=== PATIENT | female | born 2000 | race Caucasian/White ===

== ENCOUNTER 2022-04-04 10:15 | Outpatient (RCR) | payer OTHER, SELFPAY ==
[2022-03-17 11:16] VITALS: BP 90/58; PULSE 84; TEMP 36.9
[2022-03-17 11:22] VITALS: BMI 17.0
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
[2022-03-20 11:22] LABS: Amphetamine Screen Urine Not Detected (Not Detect); Barbiturates, Urine Not Detected (Not Detect); Benzodiazepines Screen Urine Not Detected (Not Detect); Cannabinoid Screen Urine POSITIVE (Not Detect); Cocaine Screen Urine Not Detected (Not Detect); Fentanyl, urine Not Detected (Not Detect); Opiate Screen Urine Not Detected (Not Detect); Phencyclidine Screen Urine Not Detected (Not Detect)
--- NOTE | 2022-03-22 09:54 | HO.PHPPROGNO ---
Subjective Subjective Date of Service: 03/22/22 Reason For Visit: MDD Medical Problems Affecting Mental Status: No Interim History: Reports increased depressive symptoms. Intrusive thoughts of self-harm yesterday states not today. Passive SI, no intent or plan currently. Reports Symptoms of PTSD including nightmares, intrusive memories, exaggerated startle response, symptoms of hyperarousal and hypervigilance. Continues with anxiety. Requesting increase of Lexapro. Medication Compliance: Yes Side effects from medications: No Attending Groups: Yes Review of Systems Acute medical concerns: No Medical Review of Systems: unchanged Review of Systems Review of Systems Yes all other systems are reviewed and are negative Constitutional: Reports no additional constitutional complaints Mental Status Exam Mental Status Exam Narrative: NAD. Passive SI. No abnormal movements, ambulation normal. Patient Appearance: Appropriate Patient Orientation: Person, Place, Time and Situation Level of Consciousness: Appropriate Patient Behavior: Appropriate and Good Eye Contact Behavior Comments: Withdrawn Mood Description: Depressed and Anxious Affect Description: Depressed and Anxious Patient Cognition Impaired: No Ability to Follow Directions: Good Speech Pattern: Coherent and Soft-Spoken Memory Description: Intact Hallucinations: None Delusions: Not Present Thought Process: Intact Thought Content: positive for Obsessional Thoughts (intrusive thoughts of self harm. ) and positive for Suicidal Ideation (Passive, no intent/plan) Depressive Symptoms: Increased Anxiety, Difficulty Sleeping (nightmares), Changes in Appetite (decreased), Loss of Int. in Activity, Hopelessness, Isolating-Friends/Family, Increased Fatigue, Thoughts of /Suicide (describes intrusive thoughts, no intent/plan) and Difficulty Concentrating Judgement: Fair Diagnostics Vital Signs (24Hr): BMI result Body Mass Index 17.0 Labs Labs: Laboratory Results - last 48 hr 03/20/22 08:50 Urine Opiates Screen Not Detected Urine Fentanyl Screen Not Detected Ur Barbiturates Screen Not Detected Ur Phencyclidine Scrn Not Detected Ur Amphetamines Screen Not Detected U Benzodiazepines Scrn Not Detected Urine Cocaine Screen Not Detected U Marijuana (THC) Screen POSITIVE H Assessment & Plan Assessment & Plan (1) Major depressive disorder, recurrent severe without psychotic features: Status: Acute Code(s): F33.2 - Major depressive disorder, recurrent severe without psychotic features Assessment and Plan: Reports increased depressive symptoms. Intrusive thoughts of self-harm yesterday states not today. Reports that another patient had been using scissors to cut the fringe off of their pants yesterday and that she found this triggering regarding thoughts of self-harm. Passive SI, no intent or plan currently. Requesting increase of Lexapro, as she has been taking it for over 3 weeks and does not have any effect yet. Discussed increasing dose to 20 mg. Also discussed expected onset of affect as usually between 3-4 weeks, sometimes longer when taking an SSRI. Patient was encouraged to notify staff immediately if she feels she is unsafe in any way. She was agreeable to this.. (2) Generalized anxiety disorder: Status: Acute Code(s): F41.1 - Generalized anxiety disorder Assessment and Plan: Believes her anxiety may actually be posttraumatic stress disorder. Endorses PTSD symptoms including nightmares, flashbacks/intrusive memories, irritability, exaggerated startle response, symptoms of hyperarousal and hypervigilance. Discussed adding risperidone, discussed medication in detail including risks and benefits, alternatives of treatment recommendations. Willing to trial low-dose risperidone at bedtime. Patient is also taken hydroxyzine in the past, willing to trial low-dose p.r.n. to help with anxiety symptoms. (3) Cannabis dependence, uncomplicated: Status: Acute Code(s): F12.20 - Cannabis dependence, uncomplicated Plan 1. Continue with current [facility] plan of care. 2. Increase Lexapro to 20 mg daily, 30 day script sent to pharmacy. 3. Start Risperdal 0.5 at bedtime, 7 day supply sent to pharmacy. 4. Start hydroxyzine 10 mg t.i.d. p.r.n. for anxiety, 21 tab supply sent to pharmacy. 5. Follow-up as per protocol. Patient educated on: diagnosis, medication risk/benefits and therapeutic strategies Informed Consent: understands Reason for contiued partial hosp. stay Substantial Risk for: harm to self, inability to function, rapid decompensation and med/psych decompensation Certification I certify that partial hospital treatment is medically necessary due to the symptoms and problems resulting from the patient's mental illness and the failure to treat the patient at the partial hospital level of care would likely result in the patient requiring inpatient psychiatric care which could not be prevented at a less intensive level of care. I spent minutes with the patient and/or on the patient floor today, greater than?50% of which was spent counseling/coordinating care. Discharge Plan Discharge Attending provider: Anastacio Castañeda Medications: New prazosin 1 mg capsule 3 mg PO BEDTIME 30 Days Qty: 90 0RF escitalopram oxalate 20 mg tablet 20 mg PO DAILY Qty: 30 0RF risperidone 0.5 mg tablet 0.5 mg PO BEDTIME Qty: 7 0RF hydroxyzine HCl 10 mg tablet 10 mg PO TID PRN (Reason: anxiety) Qty: 21 0RF Discontinued prazosin 1 mg Capsule 3 mg PO BEDTIME escitalopram oxalate 10 mg Tablet 10 mg PO DAILY escitalopram oxalate 5 mg Tablet 5 mg PO DAILY No Action ramelteon [Rozerem] 8 mg Tablet 8 mg PO BEDTIME
--- NOTE | 2022-03-23 14:14 | PC.NURSE ---
case opened in tx team
--- NOTE | 2022-03-24 12:28 | PC.NURSE ---
Met with patient this morning regarding increased anxiety. Patient states she is afraid of having a panic attack because of intense anxiety. Validation and emotional support given. Assisted patient with weekend plan to be away from her roommate who is the cause of her anxiety. Patient reports she is a constant trigger. Patient has plan of staying with her sister this evening and when with a friend starting tomorrow to limit time with roomate. Patient has spoken with roommate about leaving with the plan being that roommate will leave carlo. Patient denies SI and HI. Patient states that if she cannot manage stress or has SI with plan or intent she will call Crisis. Teaching done re: medication for anxiety with good understanding. Teaching done re: distraction and non-pharmaceutical interventions with good understanding.
--- NOTE | 2022-03-27 09:26 | PC.NURSE ---
I called client . She states that she was up late and overslept. She will be in tomorrow
--- NOTE | 2022-03-28 11:28 | P.PNPSP_ITS ---
Subjective Subjective Date of Service: 03/28/22 Reason For Visit: MDD Medical Problems Affecting Mental Status: No Interim History: Continues with dysphoric mood. Less intrusive thoughts. Finding risperidone helpful. Utilizing p.r.n. hydroxyzine with positive affect for anxiety. No SI/HI, no safety concerns. Medication Compliance: Yes Side effects from medications: No Attending Groups: Yes Review of Systems Acute medical concerns: No Medical Review of Systems: unchanged Review of Systems Review of Systems Yes all other systems are reviewed and are negative Comments: Has noted increase in acid reflux, will start utilizing [id number] Tums. Mental Status Exam Mental Status Exam Narrative: NAD. No SI, no safety concerns. No abnormal movements, ambulation normal. Patient Appearance: Appropriate Patient Orientation: Person, Place, Time and Situation Level of Consciousness: Appropriate Patient Behavior: Appropriate and Good Eye Contact Behavior Comments: Withdrawn Mood Description: Depressed and Anxious (Improved) Affect Description: Depressed and Anxious (Less) Patient Cognition Impaired: No Ability to Follow Directions: Excellent Speech Pattern: Appropriate, Coherent and Soft-Spoken Memory Description: Intact Hallucinations: None Delusions: Not Present Thought Process: Intact Thought Content: positive for Intact Depressive Symptoms: Increased Anxiety, Loss of Int. in Activity, Isolating- Friends/Family and Difficulty Concentrating Judgement: Fair Diagnostics Vital Signs (24Hr): BMI result Body Mass Index 17.0 Assessment & Plan Assessment & Plan (1) Major depressive disorder, recurrent severe without psychotic features: Status: Acute Code(s): F33.2 - Major depressive disorder, recurrent severe without psychotic features Assessment and Plan: Continues with dysphoric mood. Has not yet noticed improvement with increased dose of escitalopram. Less intrusive thoughts. Finding risperidone helpful. Sleeping better. Utilizing p.r.n. hydroxyzine with positive affect for anxiety. Going back to work soon, discussed ongoing anxiety as it is improved but still present. Discussed increasing dose, patient was agreeable. No SI/HI, no safety concerns. (2) Generalized anxiety disorder: Status: Acute Code(s): F41.1 - Generalized anxiety disorder Plan 1. Increase hydroxyzine to 25 mg t.i.d. p.r.n. for anxiety. Thirty day supply script sent to pharmacy. 2. Continue with all other medications as currently prescribed. 3. Follow-up as per protocol. Patient educated on: diagnosis, medication risk/benefits and therapeutic strategies Informed Consent: understands Reason for contiued partial hosp. stay Substantial Risk for: harm to self, inability to function and med/psych decompensation Certification I certify that partial hospital treatment is medically necessary due to the symptoms and problems resulting from the patient's mental illness and the failure to treat the patient at the partial hospital level of care would likely result in the patient requiring inpatient psychiatric care which could not be prevented at a less intensive level of care. I spent minutes with the patient and/or on the patient floor today, greater than?50% of which was spent counseling/coordinating care. Discharge Plan Discharge Attending provider: Anastacio Castañeda Medications: New prazosin 1 mg capsule 3 mg PO BEDTIME 30 Days Qty: 90 0RF escitalopram oxalate 20 mg tablet 20 mg PO DAILY Qty: 30 0RF hydroxyzine HCl 25 mg tablet 25 mg PO TID PRN (Reason: anxiety) Qty: 90 0RF risperidone 0.5 mg tablet 0.5 mg PO BEDTIME Qty: 30 0RF Discontinued prazosin 1 mg Capsule 3 mg PO BEDTIME escitalopram oxalate 10 mg Tablet 10 mg PO DAILY escitalopram oxalate 5 mg Tablet 5 mg PO DAILY No Action ramelteon [Rozerem] 8 mg Tablet 8 mg PO BEDTIME Stand Alone Forms: Patient Portal Discharge page
--- NOTE | 2022-03-31 11:45 | PC.NURSE ---
I spoke with the client 's brother Aleksandra is leaving earlier for her trip to the beach than she thought and will be back Sunday.
--- NOTE | 2022-04-04 12:17 | HO.PHPPROGNO ---
Subjective Subjective Date of Service: 04/04/22 Reason For Visit: MDD Medical Problems Affecting Mental Status: No Interim History: Describes mood as ?good? today. Less depressed, less anxious. Denies SI/HI, no safety concerns. Feels prazosin is not helping, wants to stop it. No change in dreams, and says it is too sedating. Wants to continue risperidone at bedtime. Medication Compliance: Yes Side effects from medications: Yes (Sedation from prazosin.) Attending Groups: Yes Review of Systems Acute medical concerns: No Medical Review of Systems: unchanged Review of Systems Review of Systems Yes all other systems are reviewed and are negative Constitutional: Reports no additional constitutional complaints Mental Status Exam Mental Status Exam Narrative: NAD. No SI, no safety concerns. No abnormal movements, ambulation/gait/posture normal. Patient Appearance: Appropriate Patient Orientation: Person, Place, Time and Situation Level of Consciousness: Appropriate Patient Behavior: Appropriate, Cooperative and Good Eye Contact Behavior Comments: Withdrawn Mood Description: Depressed (lessened) and Anxious (lessened) Affect Description: Appropriate Patient Cognition Impaired: No Ability to Follow Directions: Excellent Speech Pattern: Clear, Appropriate, Coherent and Soft-Spoken Memory Description: Intact Hallucinations: None Delusions: Not Present Thought Process: Intact Thought Content: positive for Intact Depressive Symptoms: Increased Anxiety Judgement: Good Diagnostics Vital Signs (24Hr): BMI result Body Mass Index 17.0 Assessment & Plan Assessment & Plan (1) Major depressive disorder, recurrent severe without psychotic features: Status: Acute Code(s): F33.2 - Major depressive disorder, recurrent severe without psychotic features Assessment and Plan: Describes mood as ?good? today. Less depressed, less anxious. Denies SI/HI, no safety concerns. States she feels [facility] has been helpful in learning / practicing coping skills. Feels ready for discharge from [facility] today. Feels prazosin is not helping, wants to stop it. No change in dreams, and says it is too sedating. We discussed stopping it at this time, with plan to discuss with new outpatient provider that she is meeting soon. Wants to continue risperidone at bedtime, as it helping to lessen intrusive thoughts. (2) Generalized anxiety disorder: Status: Acute Code(s): F41.1 - Generalized anxiety disorder (3) Cannabis dependence, uncomplicated: Status: Acute Code(s): F12.20 - Cannabis dependence, uncomplicated Assessment and Plan: No new concerns regarding cannabis use. Plan 1. D/C prazosin. 2. Continue other medications as currently prescribed. 3. Patient appears stable for discharge from [facility] at this time. 4. Patient to follow up with outpatient providers going forward. Patient educated on: diagnosis, medication risk/benefits and therapeutic strategies Reason for contiued partial hosp. stay Substantial Risk for: stable for discharge Certification I certify that partial hospital treatment is medically necessary due to the symptoms and problems resulting from the patient's mental illness and the failure to treat the patient at the partial hospital level of care would likely result in the patient requiring inpatient psychiatric care which could not be prevented at a less intensive level of care. I spent minutes with the patient and/or on the patient floor today, greater than?50% of which was spent counseling/coordinating care. Discharge Plan Discharge Attending provider: Anastacio Castañeda Additional Instructions: [facility] Katherine Alvarado 04/24/22 @ 11:00, Amina Luther MD 05/08/22 10:00, 06/06/22 11:00 Medications: New escitalopram oxalate 20 mg tablet 20 mg PO DAILY Qty: 30 0RF hydroxyzine HCl 25 mg tablet 25 mg PO TID PRN (Reason: anxiety) Qty: 90 0RF risperidone 0.5 mg tablet 0.5 mg PO BEDTIME Qty: 30 0RF Discontinued prazosin 1 mg Capsule 3 mg PO BEDTIME escitalopram oxalate 10 mg Tablet 10 mg PO DAILY escitalopram oxalate 5 mg Tablet 5 mg PO DAILY No Action ramelteon [Rozerem] 8 mg Tablet 8 mg PO BEDTIME Stand Alone Forms: Patient Portal Discharge page Patient Education: Depression (DC), Cannabis Abuse (DC)
== END 2022-04-04 23:59 | disposition home or self-care (01) ==
LOC: HO.PHPA 10:15
PROVIDERS: Nurse Practitioner Psychiatric/Mental Health; Visit Provider Psychiatry & Neurology Psychiatry
DX: F33.2 Major depressive disorder, recurrent severe without psychotic features (principal); F41.1 Generalized anxiety disorder; F12.20 Cannabis dependence, uncomplicated; Z79.899 Other long term (current) drug therapy
CPT/HCPCS: 80307; 90791; 90853

== ENCOUNTER 2022-06-01 10:30 | Outpatient (RCR) | payer OTHER, SELFPAY ==
[2022-05-31 12:58] VITALS: BP 94/60; PULSE 80; TEMP 36.8
[2022-05-31 13:02] VITALS: BMI 17.4
[2022-05-31 14:41] LABS: Amphetamine Screen Urine Not Detected (Not Detect); Barbiturates, Urine Not Detected (Not Detect); Benzodiazepines Screen Urine Not Detected (Not Detect); Cannabinoid Screen Urine POSITIVE (Not Detect); Cocaine Screen Urine Not Detected (Not Detect); Fentanyl, urine Not Detected (Not Detect); Opiate Screen Urine Not Detected (Not Detect); Phencyclidine Screen Urine Not Detected (Not Detect)
--- NOTE | 2022-05-31 15:05 | PC.ADMIT ---
Patient is a 22 year old female who self presented to [facility] as she has been struggling with depression with passive SI, denied plan or intent to kill herself, and increased anxiety. Patient attended [facility] in March however did not fall through with provider appointments as she stated, I dropped the ball with doctors, I stopped caring . Patient reports she feels like a failure. Much self loathing and is very hard on herself. Patient taking a [employer]OMER from work to work on her mental health. Patient is alert and oriented x4. Calm and cooperative. Presents with depressed mood and anxious affect. Reports passive SI, a little bit stated, I'm pathetic what would my sister think of me denied plan or intent. Patient given a copy of her safety plan if needed. Patient is help seeking and wants to learn healthy coping skills to take care of herself in a healthy way. Patient called [facility] with me to confirm her new patient appointment in 2022.
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
--- NOTE | 2022-06-01 15:38 | PHP/IOPCOSI ---
Case opened in treatment team
--- NOTE | 2022-06-02 08:37 | HO.PHPIOP ---
The client called out sick. She states that she is safe and will be here Sunday.
--- NOTE | 2022-06-06 07:39 | HO.PHPIOP ---
Pt was scheduled to be present for PHP today 06/05/2022 but she did not come in for PHP. This journalists and other writers attempted to contact her at the phone # that was listed however,the number was not working. This journalists and other writers contacted the Patient's brother who is her emergency contact,he reported that Pt is having difficulty with transportation and that he is in the process of trying to repair her car,he also stated that he would contact the Pt to check in with her. This journalists and other writers informed PHP staff.
--- NOTE | 2022-06-06 09:29 | PC.NURSE ---
Patient called out today. Stated she did not sleep last night as she c/o backache and nausea. Gave patient information on Covid testing at the hospital. Patient plans on getting tested today. Tonia Delgado to call patient to talk about discharge planning. Patient denied SI or any safety issues.
--- NOTE | 2022-06-07 09:47 | HO.PHPIOP ---
Nadeen called out this morning. She has been sick and tested positive for COVID. She states that she will stay out the remainder of this week and retest again on Sunday. She will call me when she is ready to return.
== END 2022-06-01 23:59 | disposition home or self-care (01) ==
LOC: HO.PHPA 10:30
PROVIDERS: Visit Provider Psychiatry & Neurology Psychiatry
DX: F33.2 Major depressive disorder, recurrent severe without psychotic features (principal); F41.1 Generalized anxiety disorder; F12.20 Cannabis dependence, uncomplicated
CPT/HCPCS: 80307; 90792; 90853

== ENCOUNTER 2022-06-06 12:39 | Outpatient (REF) | payer OTHER, SELFPAY ==
[2022-06-06 13:14] LABS: COVID-19 Test Positive (Negative); IDNOW Serial# 16C4AD1C
== END 2022-06-06 12:40 | disposition home or self-care (01) ==
LOC: HO.LAB 12:39
PROVIDERS: Visit Provider Internal Medicine
DX: Z20.822 Contact with and (suspected) exposure to COVID-19 (principal)
CPT/HCPCS: 87635; C9803

== ENCOUNTER 2022-06-09 13:29 | Outpatient (REF) | payer OTHER, SELFPAY ==
[2022-06-09 13:55] LABS: COVID-19 Test Positive (Negative); IDNOW Serial# 16C4AD1C
== END 2022-06-09 13:30 | disposition home or self-care (01) ==
LOC: HO.LAB 13:29
PROVIDERS: Visit Provider Internal Medicine
DX: Z20.822 Contact with and (suspected) exposure to COVID-19 (principal)
CPT/HCPCS: 87635; C9803

== ENCOUNTER 2022-06-14 14:44 | Outpatient (REF) | payer OTHER, SELFPAY ==
[2022-06-14 15:22] LABS: COVID-19 Test Negative (Negative); IDNOW Serial# 16C4AD1C
== END 2022-06-14 14:45 | disposition home or self-care (01) ==
LOC: HO.LAB 14:44
PROVIDERS: Visit Provider Internal Medicine
DX: Z20.822 Contact with and (suspected) exposure to COVID-19 (principal)
CPT/HCPCS: 87635; C9803

== ENCOUNTER 2022-06-22 12:00 | Outpatient (RCR) | payer OTHER, SELFPAY ==
--- NOTE | 2022-06-22 09:31 | PC.NURSE ---
Aleksandra showed up for her 08 intake appointment with Tonia at 0900. [facility] staff Tonia Mayfield will call her to follow up.
== END 2022-06-22 23:59 | disposition home or self-care (01) ==
LOC: HO.PHPA 12:00
PROVIDERS: Visit Provider Psychiatry & Neurology Psychiatry
DX: F33.2 Major depressive disorder, recurrent severe without psychotic features (principal); F41.1 Generalized anxiety disorder; F10.20 Alcohol dependence, uncomplicated